=== PATIENT | male | born 1940 | race Two or more races ===

== ENCOUNTER 2022-10-13 16:53 | Inpatient (IN) | payer MEDICARE ==
[~2022-10-13] VITALS: Ht 185.4 cm; Wt 84.4 kg
--- NOTE | 2022-10-13 16:57 | NUR ---
CALLED CODE STROKE.
--- NOTE | 2022-10-13 16:58 | NUR ---
PT TO CT VIA ACLS PROTOCALS.
[2022-10-13] MEDS ORDERED: IOHEXOL-350 100 ML VIAL IV ONE (17:01)
[2022-10-13] MEDS ORDERED: IV NS 0.9% 250 ML IV ONE (17:01)
--- NOTE | 2022-10-13 17:01 | NUR ---
CALLED [facility] [employer] [facility] [phone] TRISTIN LORENZ
[2022-10-13 17:04] LABS: BASOPHILS % (AUTO) 0.2 % (0.0-2.0); HEMATOCRIT 44 % (39-51); HEMOGLOBIN 14.8 g/dL (13.5-17.5); LYMPHOCYTES # (AUTO) 0.9 K/uL (0.8-4.8); LYMPHOCYTES % (AUTO) 6.6 % (20.0-44.0); MEAN CORPUSCULAR HGB CONC 34 g/dl (31.0-36.0); MEAN CORPUSCULAR VOLUME 93 fL (80-96); MONOCYTES # (AUTO) 0.3 K/uL (0.1-1.30); MONOCYTES % (AUTO) 2.2 % (2.0-12.0); NEUTROPHILS # (AUTO) 11.8 K/uL (1.8-8.9); PLATELET COUNT (AUTO) 190 K/uL (150-450); RED BLOOD CELL COUNT(AUTO) 4.71 MIL/uL (4.5-6.0)
--- NOTE | 2022-10-13 17:05 | NUR ---
Patient AOx4 able to express his concerns, stable, with no signs of distress. Discussed plan of care, patient verbalized agreement. All safety precatuions followed, will continue to monitor.
--- NOTE | 2022-10-13 17:09 | NUR ---
DR. LORENZ SPEAKING WITH DR. BONILLA.
--- NOTE | 2022-10-13 17:10 | NUR ---
Anjum page. done and documented, patient passed 5ml, when given 10ml, patient coughed. Stopped assessment and notified
[2022-10-13 17:13] LABS: CALCIUM, SERUM 8.9 mg/dL (8.5-10.1); CARBON DIOXIDE 24 mmol/L (21-32); CHLORIDE 103 mmol/L (98-107); CREATININE 1.4 mg/dL (0.6-1.3); GLUCOSE 180 mg/dL (74-106); POTASSIUM 3.9 mmol/L (3.5-5.1); SODIUM SERUM 134 mmol/L (136-145); UREA NITROGEN, BLOOD 27 mg/dL (7-18)
[2022-10-13 17:19] LABS: ALANINE AMINOTRANSFERASE 12 U/L (12-78); ALBUMIN 3.8 g/dL (3.4-5.0); ALKALINE PHOSPHATASE 107 U/L (46-116); ASPARTATE AMINOTRANSFERASE 27 U/L (15-37); BILIRUBIN,DIRECT 0.3 mg/dL (0.0-0.2); BILIRUBIN,TOTAL 1.6 mg/dL (0.2-1.0); TOTAL PROTEIN, SERUM 7.4 g/dL (6.4-8.2)
--- NOTE | 2022-10-13 17:30 | NUR ---
DR. LORENZ [phone] BONILLA.
[2022-10-13] MEDS ORDERED: ATOR40TA PO (17:53)
[2022-10-13] MEDS ORDERED: FINA5TAB11 PO (17:53)
[2022-10-13] MEDS ORDERED: NIFE-34 PO (17:53)
[2022-10-13] MEDS ORDERED: CHOL100043 PO (17:53)
[2022-10-13] MEDS ORDERED: ASCO-495 PO (17:53)
--- NOTE | 2022-10-13 17:53 | NUR ---
MOVE SHEET SUBMITTED.
--- NOTE | 2022-10-13 18:43 | NUR ---
Patient AOx4 able to express his concern, patient has remained stable throughout shift. and daughter at bedside.
--- NOTE | 2022-10-13 19:35 | NUR ---
Handoff report given to Sera BERRY
--- NOTE | 2022-10-13 19:45 | NUR ---
Received patient, AOx4, able to verbalize needs, family on bedside. Currently on RA, no s/sx of acute respi distress noted at this time. No SOB, breathing is even and unlabored. All safety precautions in place. Will continue to monitor.
--- NOTE | 2022-10-13 19:50 | NUR ---
on Pt's bedside.
--- NOTE | 2022-10-13 20:50 | NUR ---
JULIUS BUSTOS MD AT [facility]. TEL: [phone]
--- NOTE | 2022-10-13 20:54 | NUR ---
SPOKE WITH KIT FROM [facility] FOR LATERAL TRANSFER PER DR. JENKINS. CLINICALS WERE REQUESTED TO BE FAXED TO [phone].
--- NOTE | 2022-10-13 21:17 | NUR ---
CLINICALS FAXED TO [facility].
--- NOTE | 2022-10-13 21:18 | NUR ---
KIT FROM TRANSFER CENTER CALLED BACK TO INFORM THAT THERE IS NO AVAILABLE BEDS [place]. SHE WILL STILL OPEN THE CASE BUT THE ACCEPTING MD IS ON DUTY FOR TONIGHT'S SHIFT AND IF THE BED WILL BE AVAILABLE IN THE MORNING, CASE NEEDS TO BE PRESENTED TO ANOTHER ACCEPTING HOSPITALIST.
--- NOTE | 2022-10-13 21:32 | NUR ---
PT'S AND DAUGHTER AWARE OF THE TRABSFER SITUATION THAT THERE IS NO AVAILABLE BED AT THIS TIME.
--- NOTE | 2022-10-13 22:14 | NUR ---
314 BED 2
[2022-10-13] MEDS ORDERED: IV NS 0.9% 1,000 ML IV PRN (23:00)
--- NOTE | 2022-10-13 23:15 | NUR ---
TELE ADMISSION RN NOTES RECEIVED PATIENT FROM ER AT 2315 WITH SALEEM. DAUGHTER AND WITH THE PATIENT. PATIENT IS A/O TIMES 4. NO PAIN NOTED. NO SOB NOTED. NO DISTRESS NOTED. ABLE TO MAKE NEEDS KNOWN. ADMITTED FOR TIA AND CEREBRAL INFARCTION. NEURO CHECKS DONE. PATIENT ABLE TO HOLD ALL EXTREMITIES WITH NO DRIFT. TONGUE NOTED IN THE MID LINE. GAG REFLEX PRESENT. PATIENT ABLE TO FOLLOW THE POINT WITH EYES . NO VISION ISSUE NOTED. ABLE TO ARTICULATE AND SLIGHT SLURRED SPEECH NOTED. NO FACIAL DROOPING NOTED. NO WEAKNESS NOTED. NURSING SWALLOW DONE. PATIENT ABLE TO SWALLOW WATER WITHOUT ANY DIFFICULTY. NO COUGHING NO ISSUES NOTED. NO DOUBLE VISION, NO CHEAT PAIN, NO PARALYSIS NOTED. NO BEHAVIORAL CHANGE, NO CONFUSION, NO DISCOMFORT NOTED. ALL NEEDS ATTENDED. OVERALL SKIN INTACT. SKIN RASH NOTED ON THE ANTERIOR UPPER CHEST, RIGHT UPPER AND LEFT UPPER CHEST RASHES. RIGHT HIP RASH . AND RIGHT AC REDNESS NOTED. ALL THE PHOTO TAKEN AND PUT IN THE CHART. ALL THE BELONGINGS ACCOUNTED AND SIGNED FOR. TEACHING REGARDING STROKE GIVEN TO THE PATIENT. EDUCATE THE PATIENT FOR S/S OF HAVING STROKE. INSTRUCT THE PATIENT TO PRESS CALL LIGHT FOR ANY ASSISTANCE. NEURO CHECKS DONE FREQUESNTLY. SEIZURE, ASPIRATION AND FALL PRECAUTIONS. ALL SAFETY MEASURES IN PLACE. BED LOCKED IN THE LOWEST POSITION. CALL LIGHT AND TABLE IN EASY REACH. SIDE RAILS UP TIMES 2, BED ALARM ON .WILL CONTINUE TO MONITOR CLOSELY.
--- NOTE | 2022-10-13 23:15 | NUR ---
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 UPON ADMISSION.
[2022-10-13 23:21] LABS: BILIRUBIN,URINE NEGATIVE (NEGATIVE); COLOR,URINE DARK YELLOW (YELLOW); LEUKOCYTE ESTERASE ,URINE NEGATIVE (NEGATIVE); NITRITE, URINE NEGATIVE (NEGATIVE); PROTEIN,URINE NEGATIVE (NEGATIVE); UGLUCOSE NEGATIVE (NEGATIVE); UROBILINOGEN,URINE 0.2 EU/dL (0.2)
[2022-10-14] VITALS (9 sets, daily range): BP systolic 114–143; BP diastolic 66–103
[2022-10-14] MEDS ORDERED: CEFTRIAXONE 1 G in IV D5W 50 ML IV SCH (02:30)
[2022-10-14] MEDS ORDERED: CEFTRIAXONE 1 G VIAL ONE (03:15)
--- NOTE | 2022-10-14 06:16 | NUR ---
RN NOTES BLOOD SUGAR CHECKED NOTED 120. NO INSULIN COVERAGE
--- NOTE | 2022-10-14 06:20 | NUR ---
RN NOTES ORTHOSTATIC HYPOTENSION CHECKED. LAYING DOWN NOTED 132/74, P=80. SITTING BP=NOTED ST=894/75, P=85 AND STANDING SA=529/75, P=92
[2022-10-14] MEDS: BLOOD SUGAR DIAGNOSTIC 1 EACH STRIP IN SCH ×4 (06:34→22:00)
--- NOTE | 2022-10-14 06:40 | NUR ---
TELE CLOSING RN NOTES PATIENT SLEEPS ON BED. PATIENT IS A/O TIMES 4. NO PAIN NOTED. NO SOB NOTED. NO DISTRESS NOTED. ABLE TO MAKE NEEDS KNOWN. ON TELE MONITOR READING SR WITH FIRST DEGREE AV BLOCK WITH OCCASIONAL PVC'S. HR=74. NEURO CHECKS DONE. PATIENT ABLE TO HOLD ALL EXTREMITIES WITH NO DRIFT. TONGUE NOTED IN THE MID LINE. GAG REFLEX PRESENT. PATIENT ABLE TO FOLLOW THE POINT WITH EYES . NO VISION ISSUE NOTED. NO SLURRED SPEACH NOTED. NO FACIAL DROOPING NOTED. NO WEAKNESS NOTED. PATIENT ABLE TO STAND AT THE SIDE OF THE BED. NO DIZZINESS NOTED. PATIENT ABLE TO SWALLOW WATER WITHOUT ANY DIFFICULTY. NO COUGHING NO ISSUES NOTED. NO DOUBLE VISION, NO CHEAT PAIN, NO PARALYSIS NOTED. NO BEHAVIORAL CHANGE, NO CONFUSION, NO DISCOMFORT NOTED. ALL NEEDS ATTENDED.ALL DUE MEDS GIVEN. NEURO CHECKS DONE FREQUESNTLY. SEIZURE, ASPIRATION AND FALL PRECAUTIONS. ALL SAFETY MEASURES IN PLACE. BED LOCKED IN THE LOWEST POSITION. CALL LIGHT AND TABLE IN EASY REACH. SIDE RAILS UP TIMES 2, BED ALARM ON .WILL ENDORSE FOR GERALDINE.
[2022-10-14 07:09] LABS: HEMATOCRIT 40 % (39-51); HEMOGLOBIN 13.2 g/dL (13.5-17.5); LYMPHOCYTES # (AUTO) 1.8 K/uL (0.8-4.8); LYMPHOCYTES % (AUTO) 11.3 % (20.0-44.0); MEAN CORPUSCULAR HGB CONC 33 g/dl (31.0-36.0); MEAN CORPUSCULAR VOLUME 95 fL (80-96); MONOCYTES # (AUTO) 1.3 K/uL (0.1-1.30); MONOCYTES % (AUTO) 8.2 % (2.0-12.0); NEUTROPHILS # (AUTO) 12.5 K/uL (1.8-8.9); NEUTROPHILS % (AUTO) 80.5 % (43.0-81.0); PLATELET COUNT (AUTO) 177 K/uL (150-450); RED BLOOD CELL COUNT(AUTO) 4.22 MIL/uL (4.5-6.0); WHITE BLOOD COUNT (AUTO) 15.6 K/uL (4.3-11.0)
[2022-10-14] MEDS: PANTOPRAZOLE 40 MG TABLET.DR PO SCH (07:41)
[2022-10-14 07:45] LABS: CALCIUM, SERUM 8.7 mg/dL (8.5-10.1); CARBON DIOXIDE 20 mmol/L (21-32); CHLORIDE 107 mmol/L (98-107); CREATININE 0.9 mg/dL (0.6-1.3); GLUCOSE 121 mg/dL (74-106); MAGNESIUM 2.3 mg/dL (1.8-2.4); POTASSIUM 4.1 mmol/L (3.5-5.1); SODIUM SERUM 139 mmol/L (136-145); UREA NITROGEN, BLOOD 25 mg/dL (7-18)
--- NOTE | 2022-10-14 07:45 | NUR ---
DYE WEIGHER NOTES RECEIVED PATIENT AWAKE IN BED, A/OX4. NO PAIN NOTED. NO SOB NOTED. NO DISTRESS NOTED. SR 77 WITH AVB, ABLE TO MAKE NEEDS KNOWN. PATIENT ABLE TO HOLD ALL EXTREMITIES WITH NO DRIFT. TONGUE NOTED IN THE MID LINE. GAG REFLEX PRESENT. PATIENT ABLE TO FOLLOW THE POINT WITH EYES . NO VISION ISSUE, NO FACIAL DROOPING, NO WEAKNESS NOTED. PATIENT ABLE TO SWALLOW WATER WITHOUT ANY DIFFICULTY. NO COUGHING, NO DOUBLE VISION, NO CHEST PAIN, NO PARALYSIS, NO BEHAVIORAL CHANGE, NO CONFUSION, NO DISCOMFORT NOTED. ALL NEEDS ATTENDED. OVERALL SKIN INTACT. SKIN RASH NOTED ON THE ANTERIOR UPPER CHEST AND RIGHT AC REDNESS NOTED. EDUCATE THE PATIENT FOR S/S OF HAVING STROKE. INSTRUCT THE PATIENT TO PRESS CALL LIGHT FOR ANY ASSISTANCE. NEURO CHECKS DONE FREQUENTLY. SEIZURE, ASPIRATION AND FALL PRECAUTIONS. ALL SAFETY MEASURES IN PLACE. BED LOCKED IN THE LOWEST POSITION. CALL LIGHT AND TABLE IN EASY REACH. SIDE RAILS UP X2, BED ALARM ON .WILL CONTINUE TO MONITOR CLOSELY.
[2022-10-14 08:00] LABS: CHOLESTEROL 101 mg/dL (<200); CREATINE KINASE, TOTAL 143 U/L (39-308); HDL CHOLESTEROL 70 mg/dL (40-60); LDL 24 mg/dL (0-99); TRIGLYCERIDES 33 mg/dL (30-150)
[2022-10-14] MEDS ORDERED: AZITHROMYCIN 500 MG in IV D5W 250 ML IV SCH (08:00)
[2022-10-14] MEDS: CHOLECALCIFEROL 1,000 UNIT TABLET (VIT D3) PO SCH (08:45)
[2022-10-14] MEDS: ASCORBIC ACID 500 MG TABLET PO SCH (08:46)
[2022-10-14] MEDS: ASPIRIN 81 MG TAB.CHEW PO SCH (08:46)
[2022-10-14] MEDS: FINASTERIDE (5 MG) 5 MG TABLET PO SCH (08:47)
--- NOTE | 2022-10-14 14:43 | NUR ---
RN NOTES PATIENT VTE WAS 3. INFORMED DR. BRENNER AND WAITING FOR HIS RESPONSE.
--- NOTE | 2022-10-14 16:02 | NUR ---
RN NOTES DR EUBANKS VISITED AND SPOKED TO PT AND HIS REGARDING RESULTS OF PT'S MRI OF BRAIN AND PT'S CURRENT MEDICAL CONDITION.
--- NOTE | 2022-10-14 18:42 | NUR ---
SYSTEMS MANAGER CLOSING NOTES PATIENT AWAKE AND WATCHING TV. PATIENT IS A/OX4. NO PAIN, NO SOB, NO DISTRESS NOTED. ABLE TO MAKE NEEDS KNOWN. ON TELE MONITOR READING SR WITH FIRST DEGREE AV BLOCK WITH OCCASIONAL PVC'S. HR-74. NEURO CHECKS DONE. PATIENT ABLE TO HOLD ALL EXTREMITIES WITH NO DRIFT. TONGUE NOTED IN THE MID LINE. GAG REFLEX PRESENT. PATIENT ABLE TO FOLLOW THE POINT WITH EYES . NO VISION ISSUE, NO SLURRED SPEECH, NO FACIAL DROOPING, AND NO WEAKNESS NOTED. PATIENT ABLE TO WALK AND STAND AND NO DIZZINESS NOTED. NO CHEAT PAIN, NO BEHAVIORAL CHANGE, NO CONFUSION. ALL NEEDS ATTENDED. ALL DUE MEDS GIVEN. NEURO CHECKS DONE FREQUENTLY. SEIZURE, ASPIRATION AND FALL PRECAUTIONS. ALL SAFETY MEASURES IN PLACE. BED LOCKED IN THE LOWEST POSITION. CALL LIGHT AND TABLE IN EASY REACH. SIDE RAILS UP X2, BED ALARM ON .WILL ENDORSE FOR THE PROJECTION WELDING MACHINE OPERATOR NURSE FOR GERALDINE.
--- NOTE | 2022-10-14 19:17 | NUR ---
ACCOUNT REVIEW SPECIALIST OPENING NOTES: RECEIVED PATIENT AWAKE IN BED, BED IN LOW POSITION, CALL LIGHTS WITHIN REACH, NO COMPLAIN OF PAIN AND DISCOMFORT AT THIS TIME, ON ROOM AIR SATURATING WELL, PATIENT IS A/O X4 ABLE TO MAKE NEEDS KNOWN, AMBULATORY WITH ASSISTANCE. ON TELE MONITOR- SR-80 WITH SOME PVC, NO SYMPTOMS WAS OBSERVE, IV LINE AT LFA#18 AND RFA#18 SL, PATIENT KEPT CLEAN AND DRY ALL NEEDS MET WILL CONTINUE TO MONITOR.
[2022-10-14] MEDS ORDERED: ATORVASTATIN 40 MG TABLET PO SCH (22:00)
--- NOTE | 2022-10-14 22:11 | NUR ---
RN NOTES: BLOOD SUGAR-111/ NO INSULIN GIVEN PER SLIDING SCALE
[2022-10-15] VITALS: BP 120/81
[2022-10-15 05:20] VITALS: BP 135/90
[2022-10-15 06:23] LABS: BASOPHILS % (AUTO) 0.2 % (0.0-2.0); EOSINOPHILS % (AUTO) 1.2 % (0.0-6.0); HEMATOCRIT 39 % (39-51); HEMOGLOBIN 12.8 g/dL (13.5-17.5); LYMPHOCYTES % (AUTO) 40.6 % (20.0-44.0); MEAN CORPUSCULAR HGB CONC 33 g/dl (31.0-36.0); MEAN CORPUSCULAR VOLUME 95 fL (80-96); MONOCYTES # (AUTO) 1.1 K/uL (0.1-1.30); MONOCYTES % (AUTO) 9.3 % (2.0-12.0); NEUTROPHILS # (AUTO) 5.9 K/uL (1.8-8.9); NEUTROPHILS % (AUTO) 48.7 % (43.0-81.0); PLATELET COUNT (AUTO) 176 K/uL (150-450); RED BLOOD CELL COUNT(AUTO) 4.15 MIL/uL (4.5-6.0); WHITE BLOOD COUNT (AUTO) 12.2 K/uL (4.3-11.0)
[2022-10-15] MEDS: BLOOD SUGAR DIAGNOSTIC 1 EACH STRIP IN SCH ×2 (06:39→12:04)
--- NOTE | 2022-10-15 06:40 | NUR ---
RN NOTES: BLOOD SUGAR-91/ NO INSULIN GIVEN PER SLIDING SCALE.
--- NOTE | 2022-10-15 06:44 | NUR ---
ACCELERATOR OPERATOR CLOSING NOTES: PATIENT SLEEP IN BED COMFORTABLY, AROUSABLE TO VERBAL STIMULI, BED IN LOW POSITION, CALL LIGHTS WITHIN REACH, NO COMPLAIN OF PAIN AND DISCOMFORT AT THIS TIME, ON ROOM AIR SATURATING WELL, NO SOB WAS OBSERVED, IV LINE AT LFA#18, RFA#18 SALINE LOCK , PATIENT IS AMBULATORY USING WALKER WITH ASSIST, ON TELE MONITOR- SR-69 WITH FIRST DEGREE AV BLOCK, NO SYMPTOMS WAS OBSERVED, KEPT CLEAN AND DRY ALL NEEDS MET ENDORSE TO INCOMING SHIFT.
[2022-10-15 06:48] LABS: CALCIUM, SERUM 8.6 mg/dL (8.5-10.1); CREATININE 0.8 mg/dL (0.6-1.3); MAGNESIUM 2.1 mg/dL (1.8-2.4); PHOSPHORUS 3.4 mg/dL (2.5-4.9); POTASSIUM 3.7 mmol/L (3.5-5.1)
[2022-10-15 07:00] VITALS: BP_SYST 133; BP_DIAS 103; BP_DIAS 93
[2022-10-15] MEDS: PANTOPRAZOLE 40 MG TABLET.DR PO SCH (07:41)
--- NOTE | 2022-10-15 07:45 | NUR ---
SUPPORT SERVICES REP OPENING NOTES RECEIVED PATIENT AWAKE IN BED, A/OX4. NO PAIN NOTED. NO SOB NOTED. NO DISTRESS NOTED. SR WITH AVB HR:70, ABLE TO MAKE NEEDS KNOWN. PATIENT ABLE TO HOLD ALL EXTREMITIES WITH NO DRIFT. TONGUE NOTED IN THE MID LINE. GAG REFLEX PRESENT. PATIENT ABLE TO FOLLOW THE POINT WITH EYES . NO VISION ISSUE, NO FACIAL DROOPING, NO WEAKNESS NOTED. PATIENT ABLE TO SWALLOW WATER AND FOOD WITHOUT ANY DIFFICULTY. NO COUGHING, NO DOUBLE VISION, NO CHEST PAIN, NO PARALYSIS, NO BEHAVIORAL CHANGES, NO CONFUSION, NO DISCOMFORT NOTED. ALL NEEDS ATTENDED. OVERALL SKIN INTACT. SKIN RASH NOTED ON THE ANTERIOR UPPER CHEST AND RIGHT AC REDNESS NOTED. EDUCATE THE PATIENT FOR S/S OF HAVING STROKE. INSTRUCT THE PATIENT TO PRESS CALL LIGHT FOR ANY ASSISTANCE. NEURO CHECKS DONE FREQUENTLY. SEIZURE, ASPIRATION AND FALL PRECAUTIONS. ALL SAFETY MEASURES IN PLACE. BED LOCKED IN THE LOWEST POSITION. CALL LIGHT AND TABLE IN EASY REACH. SIDE RAILS UP X2, BED ALARM ON .WILL CONTINUE TO MONITOR CLOSELY.
[2022-10-15] MEDS ORDERED: ASPI-1169 PO (08:03)
[2022-10-15] MEDS ORDERED: LEVO750T46 PO (08:03)
[2022-10-15] MEDS ORDERED: ATOR40TA PO (08:03)
[2022-10-15] MEDS: ASCORBIC ACID 500 MG TABLET PO SCH (08:14)
[2022-10-15] MEDS: FINASTERIDE (5 MG) 5 MG TABLET PO SCH (08:14)
[2022-10-15] MEDS: CHOLECALCIFEROL 1,000 UNIT TABLET (VIT D3) PO SCH (08:14)
[2022-10-15] MEDS: ASPIRIN 81 MG TAB.CHEW PO SCH (08:14)
--- NOTE | 2022-10-15 08:29 | NUR ---
WOUND CARE CONSULT: PT PRESENTS WITH SLIGHT RASH TO CHEST, PRESENT ON ADMISSION. PER NURSING STAFF, RASH WAS OVER MOST OF THE BODY ON ADMISSION. PT STATES THAT HE GETS RASHES FROM TIME TO TIME. DEFER TO PMD FOR RASH. WILL SEE PRN.
[2022-10-15 11:14] VITALS: BP 135/83
--- NOTE | 2022-10-15 15:00 | NUR ---
DISCHARGE NOTES RN PATIENT DISCHARGED HOME IN STABLE CONDITION. A/O X4, ABLE TO MAKE NEEDS KNOWN. PATIENT IS BREATHING EVENLY AND UNLABORED ON ROOM AIR, NO SIGNS OF DISTRESS NOTED. TELE-MONITOR BOX REMOVED AND RETURNED TO PHOTO MASK PROCESSOR NERI. PHOTOS OF SKIN ISSUES TAKEN AND FILED ON HIS CHART. PATIENT AND WERE GIVEN DISCHARGE INSTRUCTIONS BOTH VERBALLY AND IN WRITTEN FORM, BOTH VERBALIZED UNDERSTANDING. PATIENT BELONGINGS ACCOUNTED FOR, BELONGING SHEET SIGNED BY PT. PT'S IV ACCESSES ON G#18 AND RFA G#18 REMOVED, DRY DRESSING APPLIED, AT SITES, NO SIGNS OF BLEEDING NOTED. REMOVED NAME ARM BAND. CD OF IMAGES HANDED TO PT'S . PATIENT LEFT UNIT AT 1445 VIA WHEELCHAIR ACCOMPANIED BY MINDY SANCHEZ AND PT'S LEONEL. AND CHARGE NURSE AWARE ON D/C.
== END 2022-10-15 14:50 | disposition home health service (06) | DRG 64 ==
LOC: ER 16:57 → TELE 22:19
PROVIDERS: ADMIT Nurse Practitioner Acute Care; ATTEND Internal Medicine
DX: I63.9 Cerebral infarction, unspecified (principal); G93.41 Metabolic encephalopathy; N17.0 Acute kidney failure with tubular necrosis; G45.9 Transient cerebral ischemic attack, unspecified; R47.81 Slurred speech; E78.5 Hyperlipidemia, unspecified; I10 Essential (primary) hypertension; M19.90 Unspecified osteoarthritis, unspecified site; Z79.899 Other long term (current) drug therapy; Z86.73 Personal history of transient ischemic attack (TIA), and cerebral infarction without residual deficits; N40.0 Benign prostatic hyperplasia without lower urinary tract symptoms; D72.829 Elevated white blood cell count, unspecified; E80.6 Other disorders of bilirubin metabolism; R29.700 NIHSS score 0
CPT/HCPCS: 36415; 70450-TC; 70496-TC; 70498-TC; 70551-TC; 71045-TC; 80048-TC; 80061-TC; 80076-TC; 82550-TC; 82962-TC; 83735-TC; 84100-TC; 84484-TC; 85025-TC; 85730-TC; 87081-TC; 92507-TC; 92521; 92526; 92611-TC; 93307-TC; 97112-TC; 97116-TC; 97530-TC; A4223; C9803; G0378; J0456; J0696; J7030; J7050; J7060; Q9967